=== PATIENT | male | born 1940 | race Caucasian/White ===

== ENCOUNTER 2021-03-12 04:05 | Observation (INO) | payer OTHER, SELFPAY ==
[2021-03-12] VITALS (70 sets, daily range): BP systolic 103–155; BP diastolic 61–104; PULSE 43–154; RESP 12–27; TEMP 36.2–36.5; O2SAT 96–100; BMI 26.2
--- NOTE | 2021-03-12 | ECHO_ITS ---
Patient Info Name: Tristen Aggarwal Age: 80 years : 1940 Gender: Male Ht: 72 in Wt: 203 lbs BSA: 2.18 m2 HR: 46 bpm BP: 111 / 66 mmHg Heart Rhythm: Sinus Rhythm Technical Quality: Good Exam Date: 03/12/2021 11:45 AM Exam Location: [facility] Patient Status: Inpatient Admit Date: 03/12/2021 Staff Ordering Physician: Aldo Hazel MD Lift Builder Whole: Shiela Baker RDCS Attending Provider: Cassy Miller MD Exam Type: CA echo doppler color flow Study Info Indications I48.1 - Persistent atrial fibrillation Complete two-dimensional, color flow and Doppler transthoracic echocardiogram is performed. Summary 1. Complete two-dimensional, color flow and Doppler transthoracic echocardiogram is performed. 2. Normal left and right ventricular size and systolic function. 3. Mildly sclerotic aortic valve with no significant valve dysfunction. 4. Normal sinus rhythm(study ordered because of atrial fibrillation). Left Ventricle Left ventricular chamber dimension is normal. Left ventricular systolic function is normal, estimated at 60-65%. The left ventricular diastolic function is normal. Right Ventricle Right ventricular chamber dimension is normal. Left Atria Left atrial chamber dimension is normal. Right Atria Right atrial chamber dimension is normal. Aortic Valve The aortic valve is trileaflet. There is mild aortic valve sclerosis. Pulmonic Valve The pulmonic valve is not well visualized. Mitral Valve The mitral valve has normal leaflets. Tricuspid Valve The tricuspid valve leaflets are normal. Pericardium/Pleural The pericardium appears normal. Aorta The aortic root size at the sinus of Valsalva is normal. Left Ventricular Outflow Tract Name Value Normal LVOT 2D LVOT Diameter 2.1 cm LVOT Doppler LVOT Peak Gradient 6 mmHg LVOT Mean Gradient 3 mmHg LVOT VTI 27 cm LVOT VTI/AV VTI Ratio 0.8 LVOT Stroke Volume 94 ml LVOT CO 18.1 l/min LVOT CI 8.3 l/min/m2 Pulmonic Valve Name Value Normal PV Doppler PV Peak Gradient 2 mmHg Mitral Valve Name Value Normal MV Doppler MV Decel [place] 209 cm/s2 MV PHT 69 ms MV Area (PHT) 3.2 cm2 4.0-5.0 MV Diastolic Function MV E Peak Ve
--- NOTE | ~2021-03-12 | US_ITS ---
EXAMINATION: US venous doppler [facility] DATE: 03/12/2021 18:15 INDICATION: Tachycardia and syncope TECHNIQUE: Wagoner scale images without and with compression and Doppler images of the bilateral lower e xtremity veins were obtained. COMPARISON: None FINDINGS: The right common femoral vein, profunda femoral vein, femoral vein, popliteal vein, peroneal trunk, p osterior tibial veins, and greater saphenous vein are patent. The left common femoral vein, profunda femoral vein, femoral vein, popliteal vein, peroneal trunk, po sterior tibial veins, and greater saphenous vein are patent. IMPRESSION: 1. Patent bilateral lower extremity veins. No evidence of deep venous thrombosis. Reviewed, dictated and finalized at location F. ING ROOM SUPERVISOR IMPRESSION: 1. Patent bilateral lower extremity veins. No evidence of deep venous thrombosi s.
--- NOTE | ~2021-03-12 | XR_ITS ---
EXAMINATION: XR chest 1V portable DATE: 03/12/2021 04:43 INDICATION: Tachycardia and syncopal episode after standing up. TECHNIQUE: frontal view of the chest was obtained. COMPARISON: CT abdomen and pelvis dated FINDINGS: Chronic mild elevation of the left hemidiaphragm. Mild bibasilar atelectasis. A few scattered small c alcified nodules consistent with old granulomatous disease. No pleural effusion or pneumothorax. The cardiomediastinal silhouette is normal. IMPRESSION: 1. Mild bibasilar atelectasis with chronic mild elevation of the left hemidiaphragm. Reviewed, dictated and finalized at location A. NTIST ENGINEER IMPRESSION: 1. Mild bibasilar atelectasis with chronic mild elevation of the left hemidiaph ragm.
--- NOTE | ~2021-03-12 | CT_ITS ---
EXAMINATION: CT brain wo con DATE: 03/12/2021 04:46 INDICATION: Syncope. TECHNIQUE: Computed tomography (CT) of the head was performed without intravenous contrast. The mA wa s adjusted according to patient size. Iterative reconstruction technique was employed. The dose-lengt h product was 681.00 mGy-cm. COMPARISON: Brain MRI 03/20/2011 FINDINGS: There are scattered areas of low attenuation in the cerebral white matter, which is within normal limits for the patient's age. There is no intracranial hemorrhage, acute infarction, or abnorm al intracranial mass lesion. The ventricles are normal in size. There is mucosal thickening in the pa ranasal sinuses. There are likely changes of ocular lens replacement surgeries. The mastoid air cells are normal. IMPRESSION: 1. Normal aging brain. Reviewed, dictated and finalized at location B. THERMAL CUTTER IMPRESSION: 1. Normal aging brain.
--- NOTE | 2021-03-12 04:24 | ECG_ITS ---
Measurements Intervals [place] Rate: 105 P: MD: 0 QRS: -18 QRSD: 104 T: 53 QT: 323 QTc: 428 Interpretive Statements ATRIAL FIBRILLATION WITH RAPID VENTRICULAR RESPONSE BASELINE ARTIFACT- II, III, AVR, AVF, V3-V6 ABNORMAL ECG Electronically Signed On 03-12-2021 6:36:38 MORNING SHOW PRODUCER by Poli Huggins D.O.
--- NOTE | 2021-03-12 04:31 | PC.NURSE ---
Patient taken to radiology via stretcher.
[2021-03-12] MEDS: SODIUM CHLORIDE 0.9% IV 500 ML 999 ML IV CONT (04:53)
[2021-03-12] MEDS: TETANUS,DIPHTHERIA,AC PERTUSSIS ADULT (0.5 ML) BOOSTRIX IM (04:54)
[2021-03-12 05:04] LABS: Basophils Absolute Auto 0.1 K/mm3 (0.0-0.1); Basophils Percent Auto 0.7 % (0.2-1.2); Eosinophils Absolute Auto 0.3 K/mm3 (0-0.3); Eosinophils Percent Auto 3.7 % (0-4.4); Hematocrit 44.5 % (42.0-52.0); Hemoglobin 14.7 g/dL (14.0-18.0); Immature Granulocyte Absolute 0.03 K/mm3 (0.00-0.031); Immature Granulocyte Percent A 0.4 % (0-0.5); Lymphocytes Absolute Auto 1.44 K/mm3 (0.9-3.2); Lymphocytes Percent Auto 20.5 % (18.3-44.2); Mean Corpuscular Hemoglobin 32.6 pg (26-34); Mean Corpuscular Volume 98.7 fl (80-100); Mean Platelet Volume 10.5 fl (7.4-10.4); Monocytes Absolute Auto 0.6 K/mm3 (0.1-0.6); Monocytes Percent Auto 8.5 % (2.6-8.5); Neutrophils Absolute Auto 4.7 K/mm3 (1.3-6.7); Neutrophils Percent Auto 66.2 % (45.5-73.1); Platelet Count Result 175 k/mm3 (150-375); Red Blood Count 4.51 M/mm3 (4.6-6.20); Red Cell Distribution Width 12.6 % (11.5-14.5)
--- NOTE | 2021-03-12 05:16 | ED.GENADULT ---
HPI - General Adult General Chief complaint: Syncope Stated complaint: fall, head injury Time Seen by Provider: 03/12/21 04:19 History of Present Illness HPI narrative: Patient is an 80-year-old gentleman who presents the emergency department with chief complaint of head injury. Patient states he got up and noticed his heart was beating fast he if he may have passed out but is not quite sure. Patient states that he struck his head reports that he is unsure of his last tetanus status. The patient reports was a small laceration on his forehead. Family reports that he is had some episodes of tachycardia before in the past and is to see cardiology but is currently not officially diagnosed with atrial fibrillation and has not had issues with rapid ventricular response before in the past. Related Data Home Medications Medication Instructions Recorded Confirmed clotrimazole-betamethasone 1 1 applic TOPICAL BID 05/27/19 12/29/19 %-0.05 % topical cream ergocalciferol (vitamin D2) 1,250 50,000 unit PO WEEKLY 05/27/19 12/29/19 mcg (50,000 unit) capsule esomeprazole magnesium 40 mg 40 mg PO DAILY 05/27/19 12/29/19 capsule,delayed release finasteride 5 mg tablet 5 mg PO DAILY 05/27/19 12/29/19 memantine 10 mg tablet 10 mg PO BID 05/27/19 12/29/19 oxybutynin chloride 5 mg tablet 5 mg PO BID 05/27/19 12/29/19 rivastigmine 4.6 mg TRANSDERM DAILY 05/27/19 12/29/19 simvastatin 20 mg tablet 10 mg PO .COMPLEX tablet 05/27/19 12/29/19 terazosin 5 mg capsule 5 mg PO .everyday at bedtime cap 05/27/19 12/29/19 cetirizine mg 03/12/21 lisinopril 03/12/21 Allergies Allergy/AdvReac Type Severity Reaction Status Date / Time aspirin Allergy Unknown Unknown Verified 03/12/21 04:25 Review of Systems Review of Systems: A 10 system review of systems was completed on the patient and is negative except for what is stated in the HPI. Nursing and ancillary documentation was reviewed. [facility] Past Medical History Medical History Branch retinal vein occlusion of left eye Elevated prostate specific antigen less than 10 ng/ml Routine eye exam Social History Social History Second hand tobacco smoke exposure: No Alcohol intake: current Exam Narrative: GENERAL: Well-appearing, well-nourished, and in no acute distress. HEAD: Normocephalic, 2 cm stellate laceration of the left eyebrow. EYES: PERRLA and EOMI. ENT: Nares clear, no rhinorrhea or epistaxis. Mucous membranes moist. NECK: Supple. CHEST: Clear to auscultation. No respiratory distress. HEART: Regular rate and rhythm. No murmur heard. Normal peripheral pulses. ABDOMEN: Soft, nontender, nondistended, normal active bowel sounds. EXTREMITIES: Normal range of motion. No edema. SKIN: Warm, dry, no rash. NEURO: No focal deficits. Alert and oriented x3. PSYCH: Normal mood and affect. Course Course Emergency Course: EKG is atrial fibrillation with a rate of [address] elevation or ST depression Chest x-ray shows no evidence of focal infiltrate Vital Signs Vital signs: Vital Signs Temperature 36.2 C L 03/12/21 04:19 Pulse Rate 95 03/12/21 04:19 Respiratory Rate 20 03/12/21 04:19 Blood Pressure 145/87 H 03/12/21 04:19 Pulse Oximetry 99 03/12/21 04:19 Temperature 36.2 C L 03/12/21 04:19 Pulse Rate 107 H 03/12/21 05:31 Respiratory Rate 14 03/12/21 05:31 Blood Pressure 134/96 H 03/12/21 05:31 Pulse Oximetry 99 03/12/21 05:31 Procedures Laceration Laceration 1: Date: 03/12/21 Time: 06:14 Site: face Side (If applicable): left Size (cm): 2.5 Description: stellate Depth: simple, single layer Local Anesthetic: lidocaine 1% Amount of anesthesia used (mL): 3 Pre-repair: wound explored and irrigated ====== Skin Level ====== Skin layer closed with: prol
[2021-03-12 05:18] LABS: Alanine Aminotransferase 30 U/L (4-50); Albumin Level 4.6 g/dL (3.5-5.1); Alkaline Phosphatase 72 U/L (38-126); Anion Gap 10 mmol/L (8-16); Aspartate Amino Transferase 46 U/L (17-59); Bilirubin,Total 0.4 mg/dL (0.2-1.3); Blood Urea Nitrogen 27 mg/dL (9-20); Calcium 9.3 mg/dL (8.4-10.2); Carbon Dioxide 28 mmol/L (22-30); Chloride 102 mmol/L (98-107); Estimated Glomerular Filt Rate > 60; Glucose 121 mg/dL (65-110); Potassium 3.7 mmol/L (3.4-5.0); Sodium 140 mmol/L (137-145)
[2021-03-12 05:49] LABS: Add Urine Microscopic? NO; Appearance Urine Clear (Clear); Bilirubin Urine Negative (Negative); Blood Urine Negative (Negative); Color Urine Yellow (Yellow); Glucose Urine UA Negative (Negative); Ketones Urine Negative (Negative); Leukocyte Esterase Ur Negative LEU/UL (Negative); Mucus Urine Rare /lpf; Nitrate Urine Negative (Negative); Protein Urine Negative (Negative); RBC Urine 0-2 /hpf (0-2); Specific Grav Ur 1.012 (1.001-1.035); Squamous Epithelial Cell Urine Rare /hpf (Few); Urobilinogen Urine Negative mg/dL (<2.0); WBC Urine 0-3 /hpf
[2021-03-12] MEDS: dilTIAZem HCl INJ 25 MG/5 ML VIAL 20 MG IV PUSH (06:37)
[2021-03-12] MEDS: dilTIAZem 100 MG/100 ML 100 MG/100 ML BAG IV CONT (06:37)
--- NOTE | 2021-03-12 08:32 | PM.IMHP ---
H&P: HPI History of Present Illness Date/Time: PATIENT HAS BEEN ADMITTED UNDER OBSERVATION STATUS 03/12/21 08:32 Chief Complaint: Syncope with fall Narrative: 80yo male with HTN, BPH and dementia brought in by private car after a syncopal episode and fall. Patient got up from bed and walked to the bathroom crossing tender hours of admission. He denies any tunnel visiion, lightheadedness or chest pain. He believes that he finished voiding when he felt his heart race and then 'blacked out' for a few seconds but long enough to cause a left forehead laceration. He was aware immediately and was able to use the call button. He does not fall much at all. He denies hx of CAD, [place] but does have a hx of 'heart racing' in the past and was given 'a small pill'. Complete ROS was negative. Specifically, he denies fever, chills, cough, shortness of breath, odynophagia, dysphagia, anosmia, dysgeusia, dysuria, hematuria, melena, hematochezia, nausea, vomiting, diarrhea or abdominal pain. No history of bleeding ulcers. He has had his COVID vaccine and booster. She also had his flu vaccine. Patient is alert and oriented x4 but some details are sketchy. Patient presented emergency room for evaluation. In the emergency room, patient was hemodynamically stable. His heart rate was elevated up to 154. EKG showed atrial fibrillation which is a new diagnosis for this patient. CT of the brain showed no acute findings. Chest x-ray mild bibasilar atelectasis with chronic elevation left hemidiaphragm. His lab work was unrevealing. His left forehead laceration was sutured. He was given diltiazem IV and started on diltiazem drip. Heart rate his become better controlled. He was given diptheria/tetanus/pertussis vaccine in the ED. He was admitted for further care. Review of Systems Review of Systems: All systems reviewed & are unremarkable except as noted in HPI and below PMFSH Past Medical History Medical History BPH (benign prostatic hyperplasia) Branch retinal vein occlusion of left eye Dementia Elevated prostate specific antigen less than 10 ng/ml Essential hypertension, benign Mixed hyperlipidemia Surgical History Surgical History Hx of cataract extraction Family History Family History Sibling Tachyarrhythmia Social History Social History Social History: Lives with his at [facility]. He is Full Code. No tobacco use. Drinks 3oz of wine per night. No drug use. He nominates his son to be the individual who would make decisions for him if he is unable. Smoking status: Never smoker Second hand tobacco smoke exposure: No Alcohol intake: current Drinks per week: 7 Substance use: never Spiritual care concerns: No Meds Home Medications and Allergies Home Medications Medication Instructions Recorded Confirmed Type finasteride 5 mg tablet 5 mg PO DAILY 05/27/19 03/12/21 History rivastigmine 4.6 mg TRANSDERM DAILY 05/27/19 03/12/21 History simvastatin 20 mg tablet 10 mg PO .COMPLEX tablet 05/27/19 03/12/21 History terazosin 5 mg capsule 5 mg PO .everyday at bedtime cap 05/27/19 03/12/21 History cetirizine 10 mg PO PRN PRN 03/12/21 03/12/21 History cholecalciferol (vitamin D3) 50 mcg PO DAILY 03/12/21 03/12/21 History memantine 28 mg PO DAILY 03/12/21 03/12/21 History apixaban [Eliquis] 5 mg PO Q12HR #60 tablet 03/13/21 Rx metoprolol tartrate 12.5 mg PO Q12HR #30 tablet 03/13/21 Rx Allergies Allergy/AdvReac Type Severity Reaction Status Date / Time aspirin Allergy Unknown Swelling Verified 03/12/21 12:29 Vital Signs Vital Signs - 24 hr 03/12/21 04:19 03/12/21 04:30 03/12/21 04:31 Temperature 97.2 F L Pulse Rate 95 117 H 113 H Respiratory Rate 20 20 16 Blood Pressure 145/87 H 132/81 Pulse Oximetry 99
[2021-03-12] MEDS: METOPROLOL TARTRATE 25 MG TABLET PO ×2 (09:50→20:39)
--- NOTE | 2021-03-12 10:15 | ECG_ITS ---
Measurements Intervals [place] Rate: 63 P: 67 DE: 171 QRS: -7 QRSD: 97 T: 32 QT: 382 QTc: 391 Interpretive Statements SINUS RHYTHM WITH SINUS ARRHYTHMIA DELAYED PRECORDIAL R/S TRANSITION BASELINE ARTIFACT- I, II, III, AVL, AVF, V5-V6 BORDERLINE ECG Electronically Signed On 03-12-2021 11:42:31 PASTE MIXING SUPERVISOR by Poli Huggins D.O.
--- NOTE | 2021-03-12 10:16 | PC.NURSE ---
Dr. Hazel notified of patient's heart rate and rhythm. Cardizem drip stopped and repeat EKG to be completed.
--- NOTE | 2021-03-12 10:17 | PC.NURSE ---
Marlonzem drip stopped per verbal order via Dr. Hazel.
[2021-03-12] MEDS: APIXABAN 5 MG TABLET PO ×2 (10:36→20:39)
[2021-03-12 10:56] LABS: D Dimer 1.63 ug/mL (<0.48)
--- NOTE | 2021-03-12 11:16 | PC.NURSE ---
Dr. Hazel notified about HR at 50, Dr. Hazel stated if he is not symptomatic just watch him.
[2021-03-12 11:48] LABS: Thyroid Stimulating Hormone Reflex 0.618 uIU/mL (0.465-4.68)
[2021-03-12 12:05] LABS: Folic Acid 16.8 ng/mL (2.76->20)
[2021-03-12 15:16] LABS: SARS-CoV-2 RNA PCR Negative
--- NOTE | 2021-03-12 20:07 | ADMGEN ---
This patient, Tristen Aggarwal, was admitted to IMU Room 206-01. Patient/family oriented to hospital policies and general routines including ID bracelet, bed and alarms, visiting hours, pain management, procedures, bathroom and other care routines, personal items, smoking policy, room service/diet, and visiting hours. Information on how to activate the Rapid Response Team has been discussed. Patient/Family are encouraged to report perceived risks to care and to ask questions if they do not understand what they are told or what they should do.
[2021-03-13] VITALS (13 sets, daily range): BP systolic 131–160; BP diastolic 62–85; PULSE 44–74; RESP 16–22; TEMP 36.1–36.6; O2SAT 98–100
[2021-03-13] MEDS: METOPROLOL TARTRATE 25 MG TABLET PO (10:04)
[2021-03-13] MEDS: APIXABAN 5 MG TABLET PO (10:04)
--- NOTE | 2021-03-13 10:25 | PM.CNCAR ---
Assessment and Plan Assessment and plan (1) Atrial fibrillation with rapid ventricular response: Code(s): I48.91 - Unspecified atrial fibrillation Status: Acute Assessment and Plan: 80-year-old male with history of hypertension, dyslipidemia, cognitive impairment/dementia, BPH. Patient admitted to the hospital with an episode of syncope with subsequent fall and laceration in the left eyebrow. CT scan negative for any acute intracranial process. Patient was found to be in atrial fibrillation with RVR, initiated on IV diltiazem with subsequent scientologist of sinus rhythm. Currently in sinus rhythm. Patient gives history of occasional dizziness without syncope. He apparently had ambulatory compliance monitor, results are not available. TSH normal. -patient has been initiated on anticoagulation with apixaban. Continue low-dose beta-carrie. -echocardiogram with Doppler to rule out any major structural heart disease. -PT OT evaluation for gait stability has been performed. Patient's candidacy for chronic anticoagulation will need to be readdressed if he has recurrent syncope. Further cardiac testing can be performed as an outpatient. (2) Syncope: Qualifiers: Syncope type: unspecified Qualified Code(s): R55 - Syncope and collapse Code(s): R55 - Syncope and collapse Status: Acute Assessment and Plan: Check orthostatic vitals. Echocardiogram with Doppler to rule out structural heart disease. History of Present Illness History of Present Illness Consult date/time: 03/13/21 10:25 DATE OF CONSULT: 03/13/2021 REASON FOR CONSULT: AFib, syncope REQUESTING PHYSICIAN:Aldo Hazel MD CHIEF COMPLAINT: Loss of consciousness HPI: 80-year-old male with history of hypertension, dyslipidemia, cognitive impairment/dementia, BPH. Patient presented to [facility] Emergency Room on 03/12/2021 after he had a brief loss of consciousness and fall. Patient stated that he felt racing of heart, followed by syncope and fall. He had trauma to his left forehead with laceration in the left eye brow. Patient gives history of occasional dizziness but without loss of consciousness. He states that he had one-month ambulatory compliance monitor placed but he does not know the results of the test. He denies angina or shortness of breath for his level of activity. Denies any known prior cardiac history. Heart rate at presentation was elevated in 110s. EKG on presentation which I personally evaluated showed atrial fibrillation with RVR, ventricular rate 105 beats per minute. Patient was initiated on IV diltiazem which has been discontinued now. Subsequent EKG showed sinus rhythm. TSH is normal. Troponins are pending. Chest x-ray showed mild bibasilar atelectasis with chronic mild elevation of the left hemidiaphragm. CT head did not show any acute intracranial process. Venous duplex negative for DVT. Patient has been initiated on anticoagulation with apixaban. COVID-19 PCR negative. Reason For Visit: Syncope,Atrial Fibrillation, Head Injury Review of Systems Review of Systems: General: Positive for fatigue Psychological: Negative for anxiety, depression Ophthalmic: negative for loss of vision ENT: Negative for epistaxis, headaches Allergy and immunology: Negative for hives, nasal congestion Hematologic and lymphatic: Negative for overt bleeding problems Endocrine: Negative for hot flashes, palpitations Respiratory: Negative for cough, hemoptysis Cardiovascular: Negative for chest pain, positive for palpitations Gastrointestinal: Negative for abdominal pain, nausea, vomiting, hematochezia Musculoskeletal: Laceration left eyebrow area Neurological: Post for generalized weakness Dermatological: Negative for rash, skin discoloration PMF Past Medical History Medical History BPH (benign prostatic hyperplasia) Branch retinal vein occlusion of le
[2021-03-13 13:18] LABS: Troponin I < 0.012 ng/mL (0.000-0.034)
--- NOTE | 2021-03-13 14:59 | PM.DS ---
DS: Admitting Diagnosis Discharge Date 03/13/21 Admitting Diagnosis Syncope DS: Discharge Diagnosis Discharge Diagnosis (1) Syncope: Qualifiers: Syncope type: unspecified Qualified Code(s): R55 - Syncope and collapse Code(s): R55 - Syncope and collapse Status: Acute Assessment and Plan: Unclear if patient had complete loss of consciousness or just felt weak, stumbling a bit and striking his head. CT of the brain showing no acute findings. Lab work was unrevealing. He does have newly discovered atrial fibrillation but unclear duration. Consider the possibly of a malignant arrhythmia causing his syncope but normal Echo makes this unlikely. Seizure seems less likely. COVID PCR was negative. Echo showing EF 60-65% and normal diastolic function. Orthostatic vital signs normal. He worked with PT and OT and did well with walking in the halls. Syncope could be related to his home medications. (2) Facial laceration: Qualifiers: Encounter type: initial encounter Qualified Code(s): S01.81XA - Laceration without foreign body of other part of head, initial encounter Code(s): S01.81XA - Laceration without foreign body of other part of head, initial encounter Status: Acute Assessment and Plan: Laceration related to above. This was sutured. Patient will need to follow-up with his doctor in 7-10 days to have these removed. (3) Atrial fibrillation with rapid ventricular response: Code(s): I48.91 - Unspecified atrial fibrillation Status: Acute Assessment and Plan: Heart rate elevated to 154 requiring diltiazem bolus and drip. Heart rate became better controlled. He was started on metoprolol and Diltiazem stopped. he converted to NSR verified by EKG. Cardiology was consulted. TSH normal. Trop was negaitve. D-dimer positive but LE doppler negative and no symptoms of PE. CXR showing mild bibasilar atelectasis with chronic mild elevation of the left hemidiaphragm. Discussed with Cardiology. Patient was started on Eliquis. Lisinopril and Hytrin were held. (4) Essential hypertension, benign: Code(s): I10 - Essential (primary) hypertension Status: Acute Assessment and Plan: Patient on lisinopril 10 mg on his home medication list. Blood pressure elevated times with this could be related to the time he was sutured or from pain. Unclear how well controlled his blood pressure is. Not orthostatic. BP stable with the metoprolol. (5) Dementia: Code(s): F03.90 - Unspecified dementia without behavioral disturbance Status: Acute Assessment and Plan: Stable. Confusion appears to be mild. Continue his Namenda and rivastigmine. (6) BPH (benign prostatic hyperplasia): Code(s): N40.0 - Benign prostatic hyperplasia without lower urinary tract symptoms Status: Acute Assessment and Plan: He has listed in the H that he has elevated PSA but last PSA was 3.5 in 2017. He is on terazosin and finasteride at home (Not on oxybutynin as initially listed on home med list). Finasteride was resumed. DS: Summary Hospital Course Reason for hospitalization: 80yo male with HTN, BPH and dementia brought in by private car after a syncopal episode and fall. Patient got up from bed and walked to the bathroom language teacher hours of admission. Please see H&P for details Hospital Course: Please see above for details of his hospital course Status at Discharge Cognitive/behavioral status at discharge: Stable Time Spent with Patient Time attestation: Total time spent providing and/or coordinating discharge services: 32 minutes Time spent: Greater than 30 minutes Specific discharge activities: Discussed with his . All questions answered. Exam Narrative: AF 96.9 149/79 48 20 100% ra Gen - NARD HEENT - sutured laceration to the left eyebrow with left periorbital ecchymosis but no siginficnat edema Chest -
[2021-03-13] MEDS: RIVASTIGMINE TARTRATE 4.6 MG PATCH 1 PATCH TRANSDERM (16:28)
[2021-03-13] MEDS: MEMANTINE HCL XR 28 MG CAP PO (16:28)
[2021-03-13 16:36] LABS: EDCOVIDSCREEN Negative (Negative)
== END 2021-03-13 16:45 ==
LOC: ANHED 06:28 → ANHIMU 03-13 08:02 → ANH3MEDSUR 03-14 13:23 → ANHIMU 03-14 13:23
PROVIDERS: Admitting Provider Internal Medicine; Emergency Provider Emergency Medicine; Visit Provider Internal Medicine
DX: I48.91 Unspecified atrial fibrillation (principal); R55 Syncope and collapse; S01.81XA Laceration without foreign body of other part of head, initial encounter; W18.39XA Other fall on same level, initial encounter; R79.1 Abnormal coagulation profile; I10 Essential (primary) hypertension; N40.0 Benign prostatic hyperplasia without lower urinary tract symptoms; F03.90 Unspecified dementia, unspecified severity, without behavioral disturbance, psychotic disturbance, mood disturbance, and anxiety; E78.2 Mixed hyperlipidemia; Z23 Encounter for immunization; Z20.822 Contact with and (suspected) exposure to COVID-19
CPT/HCPCS: 12011; 36415; 70450; 71045; 80053; 81003; 82607; 82746; 84443; 84484; 85025; 85380; 87426; 90715; 93005; 93306; 93970; 96365; 96366; 97161; 97165; 99285; A9270; C9803; G0378; J7040; U0003; U0005

== ENCOUNTER 2022-06-16 15:36 | Emergency (ER) | payer OTHER, SELFPAY ==
[2022-06-16] VITALS (24 sets, daily range): BP systolic 150–219; BP diastolic 73–108; PULSE 64–93; RESP 16–24; TEMP 36.2; O2SAT 95–100
--- NOTE | ~2022-06-16 | CT_ITS ---
EXAMINATION: CT thoracic spine wo con DATE: 06/16/2022 18:47 INDICATION: Fall with back pain TECHNIQUE: Computed tomography (CT) of the thoracic spine was performed without intravenous contrast. Automated exposure control and iterative reconstruction technique were employed. The dose-length pro duct was 1391.23 mGy-cm. COMPARISON: None FINDINGS: Mild thoracic dextrocurvature. Sagittal alignment is normal. There is sharply angulated cortex suspic ious for additional recent fracture at the posterior right seventh rib near its articulation with the vertebral body and There is a relatively recent-appearing, potentially acute T3 burst fracture with thin linear sclerosis extending across the entire vertebral body with approximately one third anterio r to central vertebral body height loss and without retropulsion. Chronic appearing mild anterior wed ging with 20% or less anterior vertebral body height loss at T1, T2, T4, T6 and T7 with no evident li near lucency or sclerosis or sharply angulated cortices. There are additional likely acute nondisplac ed fractures with sharp angulation of the inner cortices of the medial most aspect of the posterior r ight fifth-10th ribs near their articulations with the vertebral bodies. Moderate disc height loss at T6-T7 through T8-T9 with mild disc height loss at the majority the remaining thoracic levels. No sia tral canal stenosis. Small right pleural effusion. No evident pneumothorax. Mild dependent atelectasi s at the bilateral lung bases. There are few scattered bilateral small calcified pulmonary nodules al maximino with calcified right hilar and mediastinal lymph nodes consistent with old granulomatous disease. Cardiomegaly with atherosclerotic coronary artery calcifications. Aortic valve calcifications. No pe ricardial effusion. No pathologically enlarged thoracic lymphadenopathy. IMPRESSION: 1. Likely acute T3 burst fracture with one third anterior to central vertebral body height loss and n o significant retropulsion. 2. Additional likely acute fractures of the right posterior 3rd and 5th-10th ribs. 3. Small right pleural effusion. No pneumothorax. Reviewed, dictated and finalized at location A. IMPRESSION: 1. Likely acute T3 burst fracture with one third anterior to central vertebral body height loss and no significant retropulsion. 2. Additional likely acute fractures of the right posterior 3rd and 5th-10th ri bs. 3. Small right pleural effusion. No pneumothorax.
--- NOTE | ~2022-06-16 | CT_ITS ---
EXAMINATION: CT brain wo con DATE: 06/16/2022 18:38 INDICATION: Fall in a patient with dementia and anticoagulation. TECHNIQUE: Computed tomography (CT) of the head was performed without intravenous contrast. Sagittal and coronal reconstructions were performed. The mA was adjusted according to patient size. Iterative reconstruction technique was employed. The dose-length product was 605.33 mGy-cm. COMPARISON: head CT dated 03/12/2021 FINDINGS: No fracture. No acute intracranial hemorrhage, acute infarction or abnormal extra axial fluid collect ion. There is mild scattered white matter hypoattenuation consistent with chronic small vessel ischem ic disease. Symmetric prominence of the sulci and ventricles consistent with moderate age-appropriate diffuse cerebral volume loss. No mass/mass effect. Chronic pleural calcification along the falx and tentorium.. Changes of bilateral intraocular lens replacement. The callosal thickening the paranasal sinuses. Mastoid air cells and middle ear cavities are clear. IMPRESSION: 1. No fracture or acute intracranial process. 2. Stable appearance of age-related changes including moderate diffuse volume loss and mild scattered white matter hypoattenuation consistent with chronic small vessel ischemic disease. Reviewed, dictated and finalized at location A. IMPRESSION: 1. No fracture or acute intracranial process. 2. Stable appearance of age-related changes including moderate diffuse volume l oss and mild scattered white matter hypoattenuation consistent with chronic sma ll vessel ischemic disease.
--- NOTE | ~2022-06-16 | XR_ITS ---
EXAMINATION: XR hand RT min 3V, XR forearm RT 2V DATE: 06/16/2022 18:55 INDICATION: Right lower arm pain and bruising at the ulnar side of the right hand post fall TECHNIQUE: 1. Posteroanterior, oblique and lateral views of the right hand were obtained. 2. Anteroposterior and lateral views of the right forearm were obtained. COMPARISON: None. FINDINGS: Bone alignment is normal. Corticated ossicle along the distal ulna most likely a chronic nonunited ul anish styloid avulsion fracture. No acute fracture. Polyarticular osteoarthritis, severe at the first c arpometacarpal joint and mild at the elbow, triscaphe and multiple metacarpophalangeal and interphala ngeal joints. Peripheral IV at the antecubital fossa. Soft tissues are unremarkable. IMPRESSION: 1. 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 No acute osseous abnormali ty. Reviewed, dictated and finalized at location A. IMPRESSION: 1. 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 No a cute osseous abnormality.
--- NOTE | ~2022-06-16 | CT_ITS ---
EXAMINATION: CT abdomen pelvis w con DATE: 06/16/2022 18:38 INDICATION: Right-sided abdominal tenderness post fall TECHNIQUE: Computed tomography (CT) of the abdomen and pelvis was performed with 100 mL Omnipaque-350 intravenous contrast. Automated exposure control and iterative reconstruction technique were employe d. The dose-length product was 1273.12 mGy-cm. COMPARISON: 08/11/2014 FINDINGS: Small posterior layering right pleural effusion. Mild atelectasis at the bilateral dependent lung bas es. Cardiomegaly. Atherosclerotic coronary artery calcifications. Aortic valve calcific lesion. No pe ricardial effusion. Mild pectus excavatum. Couple small hepatic cysts the largest measuring 1.6 cm at the caudate lobe. Gallbladder, pancreas and bilateral adrenal glands are normal. Multiple splenic ca lcifications consistent with old granulomatous disease. Bilateral renal cysts the largest on the righ t measuring 5 cm. Bladder is normal. Marked prostatomegaly measuring 6.7 x 5.5 cm. Moderate to large amount stool scattered throughout the colon which could be seen with constipation. Moderate diverticu losis with sigmoid colon predominance but without associated inflammatory stranding to suggest divert iculitis. No dilated bowel to suggest obstruction. Normal appendix. No free intraperitoneal gas or fl uid. No pathologically enlarged abdominal or pelvic lymphadenopathy. There is calcified atheroscleros is of the aorta and many of the other arteries. Mild to moderate bilateral hip osteoarthritis. Mild l umbar and mild to moderate lower thoracic spondylosis. IMPRESSION: 1. Moderate to large amount colonic stool which could be seen with aspiration. No bowel obstruction o r other acute intra-abdominal/pelvic process. 2. Small right pleural effusion and mild bibasilar atelectasis. 3. Cardiomegaly. 4. Prominent prostatomegaly. 5. Moderate sigmoid diverticulosis. Reviewed, dictated and finalized at location A. IMPRESSION: 1. Moderate to large amount colonic stool which could be seen with aspiration. No bowel obstruction or other acute intra-abdominal/pelvic process. 2. Small right pleural effusion and mild bibasilar atelectasis. 3. Cardiomegaly. 4. Prominent prostatomegaly. 5. Moderate sigmoid diverticulosis.
--- NOTE | ~2022-06-16 | XR_ITS ---
EXAMINATION: XR shoulder LT min 2V DATE: 06/16/2022 18:56 INDICATION: Left anterior shoulder pain post fall TECHNIQUE: AP internally and externally rotated, AP oblique externally rotated and transscapular Y vi ews of the left shoulder were obtained. COMPARISON: None FINDINGS: Mildly displaced fracture of the mid to inferior left scapular body. No evident involvement of the gl enoid. Normal alignment and mild osteoarthritis at the left humeral and acromioclavicular joints. Vis ualized portion of the left lung are clear. Soft tissue swelling posterior to the scapula. IMPRESSION: Mildly displaced fracture of the mid to inferior left scapular body. Reviewed, dictated and finalized at location A.
--- NOTE | ~2022-06-16 | XR_ITS ---
EXAMINATION: XR chest 1V DATE: 06/16/2022 18:55 INDICATION: Right lower lateral rib pain post fall TECHNIQUE: frontal view of the chest was obtained. COMPARISON: CT of the thoracic spine and of the abdomen and pelvis both dated 06/16/2022 and chest rad iograph dated 03/12/2021 FINDINGS: Mild bibasilar atelectasis. Small right pleural effusion seen on CT imaging is indiscernible on the c urrent AP projection radiograph. No pneumothorax. Cardiomegaly. Calcified right hilar and mediastinal lymph nodes consistent with old granulomatous disease. There are non to mildly displaced fractures a t the posterolateral right 3rd- 9th ribs which are new since the prior study and which appear acute o n CT imaging. IMPRESSION: 1. Acute nondisplaced mildly displaced right 3rd- 9th rib fractures. 2. Small right pleural effusion and mild bibasilar atelectasis. No pneumothorax. 3. Cardiomegaly. Reviewed, dictated and finalized at location A. IMPRESSION: 1. Acute nondisplaced mildly displaced right 3rd- 9th rib fractures. 2. Small right pleural effusion and mild bibasilar atelectasis. No pneumothorax . 3. Cardiomegaly.
--- NOTE | 2022-06-16 17:41 | ECG_ITS ---
Measurements Intervals [place] Rate: 73 P: 34 TN: 149 QRS: -15 QRSD: 94 T: 5 QT: 367 QTc: 405 Interpretive Statements SINUS RHYTHM WITH SINUS ARRHYTHMIA POSSIBLE LEFT ATRIAL ENLARGEMENT [-0.1mV P WAVE IN V1/V2] COMPARED TO ECG 03/12/2021 10:21:02 NO SIGNIFICANT CHANGES Electronically Signed On 06-16-2022 19:25:19 CDT by Irasema Baer M.D.
--- NOTE | 2022-06-16 17:59 | ED.FALL ---
HPI - Fall General Chief Complaint: Fall <Ariel Lopez PA-C - Last Filed: 06/16/22 20:21> Stated Complaint: Fall <Ariel Lopez PA-C - Last Filed: 06/16/22 20:21> Time Seen by Provider: 06/16/22 17:22 <Ariel Lopez PA-C - Last Filed: 06/16/22 20:21> Source: patient <SHANI Torres Last Filed: 06/16/22 20:21> Mode of arrival: ambulatory <SHANI Torres Last Filed: 06/16/22 20:21> Limitations: dementia <SHANI Torres Last Filed: 06/16/22 20:21> History of Present Illness HPI Narrative: This is an 81-year-old male with PMH of dementia, HLD, A-fib who presents to the ED with chief complaint of a fall that occurred 5 days ago. [place] [facility] [place] is here and helping to supplement history. Patient tells me that he did not hit his head or pass out during the fall. However he is unable to tell me any details regarding the fall. He says that he maybe got out of bed too fast and lost his balance. He complains of back pain and right flank pain and right-sided abdominal pain. He also complains of bruising to the right wrist, however states he has no pain there. He also states left shoulder pain and reduced range of motion of the shoulder. Family notes that he has swelling to the bilateral ankles that is new for him. She also reports feeling unsteady on the legs. Denies focal weakness or numbness. Denies chest pain, shortness of breath, fevers, chills, nausea, vomiting, LOC, HO. He is on Eliquis 5 mg regularly. <Ariel Lopez PA-C - Last Filed: 06/16/22 20:21> Related Data Home Medications: Home Medications Medication Instructions Recorded Confirmed finasteride 5 mg tablet 5 mg PO DAILY 05/27/19 03/12/21 rivastigmine 4.6 mg/24 hour 4.6 mg transdermal DAILY 05/27/19 03/12/21 transdermal patch simvastatin 20 mg tablet 10 mg PO .COMPLEX 05/27/19 03/12/21 terazosin 5 mg capsule 5 mg PO .everyday at bedtime 05/27/19 03/12/21 cetirizine 10 mg tablet 10 mg PO PRN PRN Allergic Symptoms 03/12/21 03/12/21 cholecalciferol (vitamin D3) 50 50 mcg PO DAILY 03/12/21 03/12/21 mcg (2,000 unit) capsule memantine 28 mg capsule 28 mg PO DAILY 03/12/21 03/12/21 sprinkle,extended release 24hr <Ariel Lopez PA-C - Last Filed: 06/16/22 20:21> Allergies/Adverse Reactions: Allergies Allergy/AdvReac Type Severity Reaction Status Date / Time aspirin Allergy Unknown Swelling Verified 06/16/22 17:37 <SHANI Torres Last Filed: 06/16/22 20:21> Review of Systems Review of Systems: CONSTITUTIONAL: Denies fever, chills, or sweats. EYES: Denies visual changes, redness, or discharge. ENT: Denies rhinorrhea, congestion, sore throat, or otalgia. CARDIOVASCULAR: Denies chest pain, palpitations, or edema. RESPIRATORY: Denies cough or dyspnea. GASTROINTESTINAL: Denies abdominal pain, nausea, vomiting, or diarrhea. GENITOURINARY: Denies dysuria or hematuria. SKIN: Denies rash or itching. MUSCULOSKELETAL: See HPI NEUROLOGIC: Denies headache, numbness, dizziness, or weakness. Denies LOC. PSYCHIATRIC: Denies anxiety or depression. <Ariel Lopez PA-C - Last Filed: 06/16/22 20:21> [facility] Past Medical History Medical History: Medical History BPH (benign prostatic hyperplasia) Branch retinal vein occlusion of left eye Dementia Elevated prostate specific antigen less than 10 ng/ml Essential hypertension, benign Mixed hyperlipidemia <Ariel Lopez PA-C - Last Filed: 06/16/22 20:21> Surgical History Surgical History: Surgical History Hx of cataract extraction <Ariel Lopez PA-C - Last Filed: 06/16/22 20:21> Family History Family History: Family History Sibling Tachyarrhythmia <Ariel Lopez PA-C - Last Filed: 06/16/22 20:21> Social History Social History
[2022-06-16 18:11] LABS: Basophils Percent Auto 0.6 % (0.2-1.2); Eosinophils Absolute Auto 0.2 K/mm3 (0-0.3); Eosinophils Percent Auto 2.3 % (0-4.4); Hematocrit 36.3 % (42.0-52.0); Hemoglobin 11.8 g/dL (14.0-18.0); Immature Granulocyte Absolute 0.05 K/mm3 (0.00-0.031); Immature Granulocyte Percent A 0.8 % (0-0.5); Lymphocytes Absolute Auto 1.35 K/mm3 (0.9-3.2); Lymphocytes Percent Auto 20.9 % (18.3-44.2); Mean Corpuscular HGB Conc 32.5 g/dl (32-36); Mean Corpuscular Hemoglobin 32.7 pg (26-34); Mean Corpuscular Volume 100.6 fl (80-100); Mean Platelet Volume 9.8 fl (7.4-10.4); Monocytes Absolute Auto 0.7 K/mm3 (0.1-0.6); Monocytes Percent Auto 10.7 % (2.6-8.5); Neutrophils Absolute Auto 4.2 K/mm3 (1.3-6.7); Neutrophils Percent Auto 64.7 % (45.5-73.1); Platelet Count Result 177 k/mm3 (150-375); Red Blood Count 3.61 M/mm3 (4.6-6.20); Red Cell Distribution Width 12.9 % (11.5-14.5); White Blood Count 6.5 K/mm3 (4.5-10.0)
[2022-06-16 18:26] LABS: Estimated CRCL calculation 58 ml/min; Estimated Glomerular Filt Rate > 60
[2022-06-16 18:40] LABS: Alanine Aminotransferase 31 U/L (6-50); Albumin Level 3.9 g/dL (3.5-5.1); Alkaline Phosphatase 46 U/L (38-126); Anion Gap 7 mmol/L (8-16); Aspartate Amino Transferase 46 U/L (17-59); Bilirubin,Total 0.7 mg/dL (0.2-1.3); Blood Urea Nitrogen 46 mg/dL (9-20); Calcium 8.5 mg/dL (8.4-10.2); Carbon Dioxide 30 mmol/L (22-30); Chloride 100 mmol/L (98-107); Estimated CRCL calculation 71 ml/min; Estimated Glomerular Filt Rate > 60; Glucose 116 mg/dL (65-110); Magnesium 2.3 mg/dL (1.6-2.3); Potassium 4.6 mmol/L (3.4-5.0); Sodium 137 mmol/L (137-145)
[2022-06-16 18:46] LABS: NT Pro B Type Natriuretic Pept 103 pg/mL (19.9-100)
[2022-06-16] MEDS: ONDANSETRON INJ 4 MG/2 ML VIAL IV PUSH (19:15)
--- NOTE | 2022-06-16 19:15 | PC.NURSE ---
Report received from CINDY Feng. Assumed care of patient at this time.
[2022-06-16] MEDS: MORPHINE SULFATE (*CRX) 4 MG/ML INJ IV PUSH (19:17)
--- NOTE | 2022-06-16 19:27 | PC.NURSE ---
Report given to Makenzie Omalley RN.
[2022-06-16 19:36] LABS: Appearance Urine Clear (Clear); Bacteria Urine None Seen /hpf; Bilirubin Urine Negative (Negative); Blood Urine Negative (Negative); Color Urine Yellow (Yellow); Glucose Urine UA Negative (Negative); Ketones Urine Negative (Negative); Leukocyte Esterase Ur Negative LEU/UL (Negative); Nitrate Urine Negative (Negative); Non Pathogenic Casts 0-2; Protein Urine Trace mg/dL (Negative); RBC Urine 0-2 /hpf (0-2); Specific Grav Ur 1.026 (1.001-1.035); Squamous Epithelial Cell Urine None seen /hpf (Few); Urobilinogen Urine 0.2 mg/dL (<2.0); WBC Urine 0-5 /hpf; pH Urine 5.5 (5.0-9.0)
[2022-06-16 19:39] LABS: Add Urine Microscopic? YES
[2022-06-16 19:49] LABS: Troponin I < 0.012 ng/mL (0.000-0.034)
== END 2022-06-16 21:36 | disposition short-term general hospital (02) ==
PROVIDERS: Emergency Provider Physician Assistant
DX: S22.41XA Multiple fractures of ribs, right side, initial encounter for closed fracture (principal); S22.031A Stable burst fracture of third thoracic vertebra, initial encounter for closed fracture; J90 Pleural effusion, not elsewhere classified; J98.11 Atelectasis; F03.90 Unspecified dementia, unspecified severity, without behavioral disturbance, psychotic disturbance, mood disturbance, and anxiety; I10 Essential (primary) hypertension; W19.XXXA Unspecified fall, initial encounter
CPT/HCPCS: 36415; 70450; 71045; 72128; 73030; 73090; 73130; 74177; 80053; 81001; 83735; 83880; 84484; 85025; 93005; 96374; 96375; 99285; J2270; J2405; L0140; Q9967

== ENCOUNTER 2023-07-23 16:41 | Emergency (ER) | payer OTHER, SELFPAY ==
--- NOTE | ~2023-07-23 | XR_ITS ---
EXAMINATION: XR shoulder LT min 2V DATE: 07/23/2023 17:20 INDICATION: Left shoulder dislocation. TECHNIQUE: 2 views of left shoulder were obtained. COMPARISON: Left shoulder radiographs 06/16/2022 FINDINGS: There is a comminuted fracture of surgical neck of proximal left humerus. The main distal f racture fragment demonstrates 12 mm anterior displacement and 25 degrees posterior angulation. Inferi or subluxation of humeral head with respect to glenoid suggests a large glenohumeral joint effusion. There is mild acromioclavicular joint osteoarthritis. IMPRESSION: 1. Comminuted two-part fracture of proximal left humerus. 2. Large left glenohumeral joint effusion. Reviewed, dictated and finalized at location A.
--- NOTE | ~2023-07-23 | CT_ITS ---
EXAMINATION: CT shoulder LT wo con DATE: 07/23/2023 18:46 INDICATION: Proximal left humeral fracture TECHNIQUE: High resolution computed tomography (CT) of the left shoulder was performed without intrav enous contrast. Additional sagittal and coronal reconstructions were performed. Automated exposure co ntrol and iterative reconstruction technique were employed. The dose-length product was 288.97 mGy-cm . COMPARISON: Left shoulder radiographs dated 07/23/2023 and 06/16/2022 FINDINGS: Old healed left scapular fracture deformity involving the body and extending to the posterior inferio r margin of the glenoid. Acute comminuted fracture at the surgical neck. There is 1.2 cm anterior dis placement and 30 degree posterior angulation consistent with a 2 part fracture. No involvement of the articular surface of the lesser greater tuberosities. The femoral head remains normally centered ove r the glenoid. There is mild widening of the glenohumeral joint space with moderate-sized dependently layering lipohemarthrosis. There is prominent soft tissue swelling about the fracture most prominent at the posterior deltoid muscle. Visualized portion of the left lung is clear. IMPRESSION: 1. Comminuted two-part fracture at the surgical neck of the proximal left humerus with moderate-sized left glenohumeral lipohemarthrosis. 2. Old healed scapular fracture deformity. Reviewed, dictated and finalized at location A. IMPRESSION: 1. Comminuted two-part fracture at the surgical neck of the proximal left humer us with moderate-sized left glenohumeral lipohemarthrosis. 2. Old healed scapular fracture deformity.
[2023-07-23 16:44] VITALS: BP 200/86; PULSE 60; RESP 20; TEMP 36.3; O2SAT 95
[2023-07-23 17:58] VITALS: BP 132/92; PULSE 58; RESP 27; O2SAT 96
--- NOTE | 2023-07-23 18:06 | ED.FALL ---
HPI - Fall General Chief Complaint: Fall Stated Complaint: fall, shoulder pain left Time Seen by Provider: 07/23/23 17:12 Source: patient Mode of arrival: ambulatory Limitations: no limitations History of Present Illness HPI Narrative: This is an 83-year-old male who presents to the ED via EMS [facility] with chief complaint of left shoulder injury that occurred just prior to arrival. Patient reports that he was outside walking when he went up an embankment. Reports that he tried to grab a tree branch while on the embankment but could not pull himself up. He reports this caused him to fall backwards onto his left shoulder. Denies any further sites of pain or injury. Denies numbness, weakness. Related Data Home Medications Medication Instructions Recorded Confirmed finasteride 5 mg tablet 5 mg PO DAILY 05/27/19 03/12/21 rivastigmine 4.6 mg/24 hour 4.6 mg transdermal DAILY 05/27/19 03/12/21 transdermal patch simvastatin 20 mg tablet 10 mg PO .COMPLEX 05/27/19 03/12/21 terazosin 5 mg capsule 5 mg PO .everyday at bedtime 05/27/19 03/12/21 cetirizine 10 mg tablet 10 mg PO PRN PRN Allergic Symptoms 03/12/21 03/12/21 cholecalciferol (vitamin D3) 50 50 mcg PO DAILY 03/12/21 03/12/21 mcg (2,000 unit) capsule memantine 28 mg capsule 28 mg PO DAILY 03/12/21 03/12/21 sprinkle,extended release 24hr Allergies Allergy/AdvReac Type Severity Reaction Status Date / Time aspirin Allergy Unknown Swelling Verified 06/16/22 17:37 Review of Systems Review of Systems: All systems as dictated in HPI [facility] Past Medical History Medical History BPH (benign prostatic hyperplasia) Branch retinal vein occlusion of left eye Dementia Elevated prostate specific antigen less than 10 ng/ml Essential hypertension, benign Mixed hyperlipidemia Surgical History Surgical History Hx of cataract extraction Family History Family History Sibling Tachyarrhythmia Social History Social History Social History: Lives with his at [facility]. He is Full Code. No tobacco use. Drinks 3oz of wine per night. No drug use. He nominates his son to be the individual who would make decisions for him if he is unable. Smoking status: Never smoker Second hand tobacco smoke exposure: No Alcohol intake: current Drinks per week: 7 Substance use: never Spiritual care concerns: No Exam Narrative: GENERAL: Well-appearing, well-nourished, and in no acute distress. HEAD: Normocephalic, atraumatic. EYES: PERRLA and EOMI. ENT: Nares clear, no rhinorrhea or epistaxis. Mucous membranes moist. Oropharynx without tonsillar hypertrophy exudate or other lesions. NECK: Supple. No adenopathy or masses. CHEST: No respiratory distress. Clear to auscultation. No wheezes rales or rhonchi HEART: Regular rate and rhythm. No murmur heard. Normal peripheral pulses. ABDOMEN: Soft, nontender, nondistended, normal active bowel sounds. MSK: Tenderness throughout the left shoulder joint. There is mild deformity present. Range of motion is severely impacted due to pain and deformity. Neurovascularly intact distally. Right upper extremity benign SKIN: Warm, dry, no rash. NEURO: Alert and oriented x3. No focal deficits. PSYCH: Normal mood and affect. Course Reevaluation(s) Reevaluation #1: Patient is doing well with arm sling. Pain is minimal without any medical intervention here. Family is bedside and we have agreed to plan for discharge and follow-up with orthopedics this week Date: 07/23/23 Time: 19:21 Consultations Consultation #1: Spoke with orthopedics, Dr. Colby: Recommends conservative management at this point after he has reviewed the results of the CT scan. We will treat with arm sling and oral pain control and plan for discharge
[2023-07-23 18:37] LABS: Basophils Percent Auto 0.3 % (0.2-1.2); Eosinophils Absolute Auto 0.1 K/mm3 (0-0.3); Eosinophils Percent Auto 1.2 % (0-4.4); Hematocrit 35.6 % (42.0-52.0); Hemoglobin 11.8 g/dL (14.0-18.0); Immature Granulocyte Absolute 0.11 K/mm3 (0.00-0.031); Immature Granulocyte Percent A 0.9 % (0-0.5); Lymphocytes Absolute Auto 1.09 K/mm3 (0.9-3.2); Lymphocytes Percent Auto 9.2 % (18.3-44.2); Mean Corpuscular HGB Conc 33.1 g/dl (32-36); Mean Corpuscular Hemoglobin 32.3 pg (26-34); Mean Corpuscular Volume 97.5 fl (80-100); Mean Platelet Volume 10.9 fl (7.4-10.4); Monocytes Absolute Auto 0.8 K/mm3 (0.1-0.6); Monocytes Percent Auto 6.4 % (2.6-8.5); Neutrophils Absolute Auto 9.7 K/mm3 (1.3-6.7); Platelet Count Result 144 k/mm3 (150-375); Red Blood Count 3.65 M/mm3 (4.6-6.20); Red Cell Distribution Width 12.9 % (11.5-14.5); White Blood Count 11.8 K/mm3 (4.5-10.0)
[2023-07-23 18:47] LABS: Alanine Aminotransferase 20 U/L (6-50); Albumin Level 3.8 g/dL (3.5-5.1); Alkaline Phosphatase 55 U/L (38-126); Anion Gap 7 mmol/L (4-12); Aspartate Amino Transferase 31 U/L (17-59); Bilirubin,Total 0.4 mg/dL (0.2-1.3); Blood Urea Nitrogen 37 mg/dL (9-20); Calcium 8.5 mg/dL (8.4-10.2); Carbon Dioxide 23 mmol/L (22-30); Chloride 104 mmol/L (98-107); Estimated CRCL calculation 82 ml/min; Estimated Glomerular Filt Rate > 60; Glucose 120 mg/dL (65-110); Potassium 4.1 mmol/L (3.4-5.0); Sodium 134 mmol/L (137-145)
[2023-07-23 18:54] VITALS: BP 145/74; PULSE 56; RESP 25; O2SAT 98
[2023-07-23 18:55] LABS: INR 1.1; Prothrombin Time 14.9 Seconds (11.1-14.7)
[2023-07-23 18:56] LABS: Partial Thromboplastin Time 28.5 Seconds (22.3-36.8)
--- NOTE | 2023-07-23 20:06 | PC.NURSE ---
attempted calling [facility] @1999 and again @2005 with no answer. left a voicemail with call back number and patients family verbalized discharge teaching. all questions answered
[2023-07-23 20:07] VITALS: BP 128/57; PULSE 64; RESP 26; TEMP 36.8; O2SAT 98
--- NOTE | 2023-07-23 21:33 | PC.NURSE ---
nurse Hetal from [facility] called for patient update @[phone]
== END 2023-07-23 20:03 ==
PROVIDERS: Emergency Provider Physician Assistant
DX: S42.222A 2-part displaced fracture of surgical neck of left humerus, initial encounter for closed fracture (principal); F03.90 Unspecified dementia, unspecified severity, without behavioral disturbance, psychotic disturbance, mood disturbance, and anxiety; I10 Essential (primary) hypertension; E78.2 Mixed hyperlipidemia; N40.0 Benign prostatic hyperplasia without lower urinary tract symptoms; Z98.49 Cataract extraction status, unspecified eye; W10.2XXA Fall (on)(from) incline, initial encounter
CPT/HCPCS: 36415; 73030; 73200; 80053; 85025; 85610; 85730; 86850; 86900; 86901; 99284; A4565

== ENCOUNTER 2023-08-22 20:47 | Emergency (ER) | payer OTHER, SELFPAY ==
--- NOTE | ~2023-08-22 | XR_ITS ---
XR shoulder LT min 2V Ordering provider: Aldo Holliday History: . pain status post fall . Comparison: July 29, 2023 FINDINGS: BONES: Comminuted fracture in the proximal metaphysis of the left humerus. Posterior displacement of the distal fragment seen. JOINT SPACES: The acromioclavicular joint is normal. The glenohumeral joint is normal. SOFT TISSUES: Soft tissue swelling is seen laterally. IMPRESSION: Comminuted fracture in the proximal metaphysis of the left humerus. Posterior displacement of the dis ceci fragment seen. Reviewed, dictated and finalized at location A. IMPRESSION: Comminuted fracture in the proximal metaphysis of the left humerus. Posterior d isplacement of the distal fragment seen.
--- NOTE | ~2023-08-22 | XR_ITS ---
XR shoulder RT min 2V Ordering provider: Aldo Holliday History: . pain status post fall . Comparison: None. FINDINGS: BONES: No acute fracture or dislocation. JOINT SPACES: The acromioclavicular joint shows osteoarthritic changes.. The glenohumeral joint shows narrowing of the joint space. SOFT TISSUES: Normal. Prominent markings in the lower lobes of the lungs. IMPRESSION: No acute osseous abnormality right shoulder. Reviewed, dictated and finalized at location A.
--- NOTE | ~2023-08-22 | CT_ITS ---
CT cervical spine wo con Ordering provider: Aldo Holliday MD History: . neck pain status post fall . Comparison: None. Technique: CT of the cervical spine was performed without contrast. Sagittal and coronal reformatted images were also obtained and reviewed. Radiation reduction technique utilized. DLP is 401.87 mGy. FINDINGS: VERTEBRAE: No subluxation or acute fracture. The occipital condyles are intact. Loss of volume of T1 , T2 and T3 with maximum changes in T3. The fracture in T3 is most likely acute. Multilevel facet joint disease. DISC SPACES: Normal. Bilateral mild narrowing of the foramina at the level of C3-C4. PARASPINOUS SOFT TISSUES: Normal. IMPRESSION: No acute osseous abnormality cervical spine. Compression fracture of T1, T2 and T3 with highly suggestive acute fracture of T3. Clinical correlati on and or MRI is advised. Reviewed, dictated and finalized at location A. IMPRESSION: No acute osseous abnormality cervical spine. Compression fracture of T1, T2 and T3 with highly suggestive acute fracture of T3. Clinical correlation and or MRI is advised.
--- NOTE | ~2023-08-22 | XR_ITS ---
XR chest 1V Ordering provider: Aldo Holliday MD History: 83 years Male with . synocope . Comparison: June 16, 2022 FINDINGS: MEDIASTINUM: The cardiac silhouette is slightly enlarged. Congestive chidi. LUNGS: No infiltrates, effusions or pneumothorax. Prominent markings in the lower lobes. Minimal inte rstitial changes bilaterally. OTHER: No free air under the diaphragm. IMPRESSION: Prominent markings in the lower lobes. Interstitial pneumonitis cannot be excluded. Clinical correlat ion advised. Reviewed, dictated and finalized at location A. IMPRESSION: Prominent markings in the lower lobes. Interstitial pneumonitis cannot be exclu ded. Clinical correlation advised.
--- NOTE | ~2023-08-22 | CT_ITS ---
CT brain wo con Ordering provider: Aldo Holliday MD History: 83 years Male with . head injury . Comparison: None. Technique: CT of the head without contrast. Radiation reduction technique utilized. The DLP is 605.33 mGy. FINDINGS: BRAIN PARENCHYMA AND CSF SPACES: Deep white matter ischemic changes with mild brain atrophy and mild ventricular dilatation. No midline shift, mass effect or hemorrhage. The brain parenchyma and CSF sp aces are otherwise normal. VISUALIZED PARANASAL SINUSES: Bilateral ethmoid sinus disease. MASTOIDS: Well aerated. BONES: The bones appear intact. SOFT TISSUES: Minimal soft tissue swelling over the largest orbit Visualized nasopharynx is normal. S uperficial soft tissues are normal. IMPRESSION: No acute intracranial findings. Reviewed, dictated and finalized at location A.
--- NOTE | ~2023-08-22 | XR_ITS ---
XR elbow LT min 3V Ordering provider: Aldo Holliday MD History: . pain status post fall . Comparison: None. FINDINGS: BONES: No acute fracture or dislocation. JOINT SPACES: Normal. SOFT TISSUES: Normal. No definite joint effusion. IMPRESSION: No acute osseous abnormality left elbow. Reviewed, dictated and finalized at location A.
[2023-08-22 20:59] VITALS: BP 157/79; PULSE 67; RESP 17; TEMP 37.1; O2SAT 100
--- NOTE | 2023-08-22 21:26 | ECG_ITS ---
Test Date: 2023-08-22 22:36:33 Measurements Intervals [place] Rate: 74 P: 60 IN: 173 QRS: -22 QRSD: 110 T: 7 QT: 386 QTc: 429 Interpretive Statements SINUS RHYTHM BORDERLINE LEFT AXIS DEVIATION [QRS AXIS < -20] DELAYED R-WAVE TRANSITION BORDERLINE ECG No previous ECG available for comparison Electronically Signed On 08-23-2023 08:04:09 CDT by Doug Damon M.D.
[2023-08-22 21:30] VITALS: BP 160/82; PULSE 63; RESP 20; O2SAT 98
[2023-08-22 22:32] LABS: Basophils Percent Auto 0.5 % (0.2-1.2); Eosinophils Absolute Auto 0.1 K/mm3 (0-0.3); Eosinophils Percent Auto 1.7 % (0-4.4); Hematocrit 36.6 % (42.0-52.0); Hemoglobin 11.6 g/dL (14.0-18.0); Immature Granulocyte Absolute 0.03 K/mm3 (0.00-0.031); Immature Granulocyte Percent A 0.4 % (0-0.5); Lymphocytes Percent Auto 13.2 % (18.3-44.2); Mean Corpuscular HGB Conc 31.7 g/dl (32-36); Mean Corpuscular Volume 100.8 fl (80-100); Mean Platelet Volume 9.6 fl (7.4-10.4); Monocytes Absolute Auto 0.7 K/mm3 (0.1-0.6); Neutrophils Absolute Auto 5.7 K/mm3 (1.3-6.7); Neutrophils Percent Auto 75.2 % (45.5-73.1); Platelet Count Result 248 k/mm3 (150-375); Red Blood Count 3.63 M/mm3 (4.6-6.20); Red Cell Distribution Width 14.8 % (11.5-14.5); White Blood Count 7.6 K/mm3 (4.5-10.0)
[2023-08-22 22:39] VITALS: BP 196/90; PULSE 75
[2023-08-22 22:40] VITALS: BP 207/109; PULSE 79
[2023-08-22 22:40] LABS: Add Urine Microscopic? YES; Appearance Urine Clear (Clear); Bacteria Urine None Seen /hpf; Bilirubin Urine Negative (Negative); Blood Urine Negative (Negative); Color Urine Yellow (Yellow); Glucose Urine UA Negative (Negative); Ketones Urine Negative (Negative); Leukocyte Esterase Ur Negative LEU/UL (Negative); Nitrate Urine Negative (Negative); Non Pathogenic Casts 0-2; Protein Urine Trace mg/dL (Negative); RBC Urine 0-2 /hpf (0-2); Specific Grav Ur 1.017 (1.001-1.035); Squamous Epithelial Cell Urine None Seen /hpf (Few); Urobilinogen Urine 0.2 mg/dL (<2.0); WBC Urine 0-5 /hpf (0-3)
[2023-08-22 22:42] LABS: INR 1.1; Prothrombin Time 14.2 Seconds (11.1-14.7)
[2023-08-22 22:43] VITALS: BP 210/105; PULSE 87
[2023-08-22 22:43] LABS: Partial Thromboplastin Time 27.9 Seconds (22.3-36.8)
[2023-08-22 22:46] LABS: Alanine Aminotransferase 19 U/L (6-50); Albumin Level 4.2 g/dL (3.5-5.1); Alkaline Phosphatase 98 U/L (38-126); Anion Gap 7 mmol/L (4-12); Aspartate Amino Transferase 39 U/L (17-59); Bilirubin,Total 0.7 mg/dL (0.2-1.3); Blood Urea Nitrogen 34 mg/dL (9-20); Calcium 8.8 mg/dL (8.4-10.2); Carbon Dioxide 27 mmol/L (22-30); Chloride 102 mmol/L (98-107); Estimated CRCL calculation 76 ml/min; Estimated Glomerular Filt Rate > 60; Glucose 107 mg/dL (65-110); Magnesium 1.9 mg/dL (1.6-2.3); Potassium 3.9 mmol/L (3.4-5.0); Sodium 136 mmol/L (137-145)
[2023-08-22 23:02] LABS: NT Pro B Type Natriuretic Pept 256 pg/mL (19.9-100); Troponin I 0.013 ng/mL (0.000-0.034)
[2023-08-22 23:04] VITALS: BP 172/82; PULSE 67; RESP 18; O2SAT 98
--- NOTE | 2023-08-22 23:37 | ED.GENADULT ---
HPI - General Adult General Chief complaint: Fall Stated complaint: GLF, head injury Time Seen by Provider: 08/22/23 20:58 History of Present Illness HPI narrative: Patient 83-year-old gentleman who presents emergency department with chief complaint of fall in the shower. Per the staff patient was taking shower slipped on wet floor report no loss of consciousness reports a hematoma on the head patient reports that he had a recent fracture in his left humerus and also reports he has had some increasing edema in his lower extremities the patient did denies chest pain denies shortness of breath Related Data Home Medications Medication Instructions Recorded Confirmed finasteride 5 mg tablet 5 mg PO DAILY 05/27/19 03/12/21 rivastigmine 4.6 mg/24 hour 4.6 mg transdermal DAILY 05/27/19 03/12/21 transdermal patch cholecalciferol (vitamin D3) 50 50 mcg PO DAILY 03/12/21 03/12/21 mcg (2,000 unit) capsule acetaminophen 500 mg capsule 500 mg PO Q6H PRN 07/29/23 buspirone 7.5 mg tablet 7.5 mg PO TID 07/29/23 lidocaine 5 % topical patch 1 patch topical DAILY 07/29/23 polyethylene glycol 3350 17 17 g PO DAILY 07/29/23 gram/dose oral powder simvastatin 40 mg tablet 40 mg PO DAILY 07/29/23 triamcinolone acetonide 0.1 % 1 applic topical BID 07/29/23 topical cream Allergies Allergy/AdvReac Type Severity Reaction Status Date / Time aspirin Allergy Unknown Swelling Verified 07/29/23 11:04 Review of Systems Review of Systems: A 10 system review of systems was completed on the patient and is negative except for what is stated in the HPI. Nursing and ancillary documentation was reviewed. [facility] Past Medical History Medical History BPH (benign prostatic hyperplasia) Branch retinal vein occlusion of left eye Dementia Elevated prostate specific antigen less than 10 ng/ml Essential hypertension, benign History of heart valve abnormality Mixed hyperlipidemia Surgical History Surgical History Hx of cataract extraction Family History Family History Sibling Tachyarrhythmia Social History Social History Social History: Lives with his at [facility]. He is Full Code. No tobacco use. Drinks 3oz of wine per night. No drug use. He nominates his son to be the individual who would make decisions for him if he is unable. Smoking status: Never smoker Second hand tobacco smoke exposure: No Alcohol intake: current Drinks per week: 7 Substance use: never Do You Feel Safe in your Home?: Yes Lack of Transportation: No Lack of Food: Never True Current Housing: I Have Housing Concerned About Future Housing: No Difficulty Paying Gas/Electric Bills: No Difficulty Paying for Meds: No Currently Unemployed: No Education: Associate Degree Difficulty w/ Childcare or Family Care: No Living arrangements: assisted living Occupation/Education: retired Gender identity (if verbalized by the patient): Male Spiritual care concerns: No Exam Narrative: GENERAL: Well-appearing, well-nourished, and in no acute distress. HEAD: Normocephalic, atraumatic. EYES: PERRLA and EOMI. ENT: Nares clear, no rhinorrhea or epistaxis. Mucous membranes moist. NECK: Supple. CHEST: Clear to auscultation. No respiratory distress. HEART: Regular rate and rhythm. No murmur heard. Normal peripheral pulses. ABDOMEN: Soft, nontender, nondistended, normal active bowel sounds. EXTREMITIES: Normal range of motion left upper extremity is in a sling. 2+ edema. SKIN: Warm, dry, no rash. NEURO: No focal deficits. Alert and oriented x3. PSYCH: Normal mood and affect. Course Vital Signs Vital signs: Vital Signs Temperature 37.1 C 08/22/23 20:59 Pulse Rate 67 06/2
[2023-08-23 00:35] VITALS: BP 168/85; PULSE 75; RESP 19; TEMP 36.9; O2SAT 100
== END 2023-08-23 00:37 ==
PROVIDERS: Emergency Provider Emergency Medicine; PCP Family Medicine
DX: S00.93XA Contusion of unspecified part of head, initial encounter (principal); S22.030A Wedge compression fracture of third thoracic vertebra, initial encounter for closed fracture; R60.0 Localized edema; S49.092 Other physeal fracture of upper end of humerus, left arm; F03.90 Unspecified dementia, unspecified severity, without behavioral disturbance, psychotic disturbance, mood disturbance, and anxiety; I10 Essential (primary) hypertension; E78.2 Mixed hyperlipidemia; N40.0 Benign prostatic hyperplasia without lower urinary tract symptoms; Z79.01 Long term (current) use of anticoagulants; Z79.899 Other long term (current) drug therapy; W18.2XXA Fall in (into) shower or empty bathtub, initial encounter; X58.XXXD Exposure to other specified factors, subsequent encounter; R94.31 Abnormal electrocardiogram [ECG] [EKG]; R91.8 Other nonspecific abnormal finding of lung field
CPT/HCPCS: 36415; 70450; 71045; 72125; 73030; 73080; 80053; 81001; 83605; 83735; 83880; 84145; 84484; 85025; 85610; 85730; 93005; 99284

== ENCOUNTER 2023-08-26 23:14 | Emergency (ER) | payer OTHER, SELFPAY ==
--- NOTE | ~2023-08-26 | XR_ITS ---
XR chest 1V portable Ordering provider: Lizbeth Cardoza MD History: 83 years Male with . fall PAIN TO SHOULDER BLADES . Comparison: August 22, 2023 FINDINGS: MEDIASTINUM: The cardiac silhouette is slightly enlarged. Prominent chidi. LUNGS: No effusion or pneumothorax. Prominent markings in the lower lobes. Atelectatic changes are po ssible. OTHER: Fracture of the left humeral neck is noted. No free air under the diaphragm. Degenerative poe ges of the spine. IMPRESSION: Prominent markings in the lower lobes with possible atelectatic changes. Underlying fibrotic changes. Fracture of the left humerus. Reviewed, dictated and finalized at location A. IMPRESSION: Prominent markings in the lower lobes with possible atelectatic changes. Underl brian fibrotic changes. Fracture of the left humerus.
--- NOTE | ~2023-08-26 | CT_ITS ---
CT brain wo con Ordering provider: Lizbeth Cardoza MD History: 83 years Male with . fall on Eliquis . Comparison: August 22, 2023 Technique: CT of the head without contrast. Radiation reduction technique utilized. DLP is 605.33 mGy FINDINGS: BRAIN PARENCHYMA AND CSF SPACES: Mild leukoaraiosis and diffuse cortical atrophy. Mild atheromatous d isease. No midline shift, mass effect or hemorrhage. The brain parenchyma and CSF spaces are otherwi se normal. VISUALIZED PARANASAL SINUSES: Left ethmoid sinus disease. MASTOIDS: Well aerated. BONES: The bones appear intact. SOFT TISSUES: Visualized nasopharynx is normal. Superficial soft tissues are normal. IMPRESSION: No acute intracranial findings. Reviewed, dictated and finalized at location A.
[2023-08-26 23:15] VITALS: BP 203/103; PULSE 72; RESP 16; TEMP 36.9; O2SAT 98
[2023-08-26 23:19] VITALS: O2SAT 99
[2023-08-26 23:23] VITALS: BP 203/103; PULSE 68; RESP 23; O2SAT 97
--- NOTE | 2023-08-26 23:23 | ECG_ITS ---
Test Date: 2023-08-26 23:35:00 Measurements Intervals [place] Rate: 64 P: 40 NH: 169 QRS: -13 QRSD: 110 T: 13 QT: 406 QTc: 421 Interpretive Statements SINUS RHYTHM Compared to ECG 08/22/2023 22:36:33 No significant changes Electronically Signed On 08-27-2023 11:51:45 CDT by Maxi Sheridan M.D.
--- NOTE | 2023-08-26 23:24 | ED.HEATRA ---
HPI - Head Injury General Chief complaint: Head Injury Stated complaint: FALL, HEAD INJURY, HYPERTENSIVE Time Seen by Provider: 08/26/23 23:14 Source: patient, family, EMS and RN notes reviewed Mode of arrival: EMS Limitations: other (hard of hearing so difficult to obtain some of history) History of Present Illness HPI Narrative: Patient presents as a fall. Resides at an assisted living facility. This is his 3rd fall in a week. When asked about the fall, he states I think my heart but denies any chest pain, palpitations, shortness of breath or preceding symptoms. Can not tell details of falls though and unclear if lost consciousness or not. Struck his head and Carole is on medication list though patient states he quit it. Related Data Home Medications Medication Instructions Recorded Confirmed finasteride 5 mg tablet 5 mg PO DAILY 05/27/19 03/12/21 rivastigmine 4.6 mg/24 hour 4.6 mg transdermal DAILY 05/27/19 03/12/21 transdermal patch cholecalciferol (vitamin D3) 50 50 mcg PO DAILY 03/12/21 03/12/21 mcg (2,000 unit) capsule acetaminophen 500 mg capsule 500 mg PO Q6H PRN Back Pain 07/29/23 buspirone 7.5 mg tablet 7.5 mg PO TID 07/29/23 lidocaine 5 % topical patch 1 patch topical DAILY 07/29/23 polyethylene glycol 3350 17 17 g PO DAILY 07/29/23 gram/dose oral powder simvastatin 40 mg tablet 40 mg PO DAILY 07/29/23 triamcinolone acetonide 0.1 % 1 applic topical BID 07/29/23 topical cream calcium citrate 250 mg PO DAILY 08/26/23 docusate sodium 50 mg capsule mg PO 08/26/23 sennosides 8.6 mg capsule (senna) mg 08/26/23 Allergies Allergy/AdvReac Type Severity Reaction Status Date / Time aspirin Allergy Unknown Swelling Verified 07/29/23 11:04 loratadine [From Claritin] Allergy Swelling Verified 08/26/23 23:29 shellfish derived Allergy Swelling Verified 08/26/23 23:29 [facility] Past Medical History Medical History (Updated 08/28/23 @ 00:01 by Background Danaida) BPH (benign prostatic hyperplasia) Branch retinal vein occlusion of left eye Dementia Elevated prostate specific antigen less than 10 ng/ml Essential hypertension, benign Fracture of neck of left humerus History of heart valve abnormality Mixed hyperlipidemia Surgical History Surgical History Hx of cataract extraction Family History Family History Sibling Tachyarrhythmia Social History Social History (Updated 08/27/23 @ 01:24 by Lizbeth Cardoza MD) Social History: Lives with his at [facility]. He is Full Code per documentation signed 04/29/17. No tobacco use. Drinks 3oz of wine per night. No drug use. He nominates his son to be the individual who would make decisions for him if he is unable. Smoking status: Never smoker Second hand tobacco smoke exposure: No Alcohol intake: current Drinks per week: 7 Substance use: never Do You Feel Safe in your Home?: Yes Lack of Transportation: No Lack of Food: Never True Current Housing: I Have Housing Concerned About Future Housing: No Difficulty Paying Gas/Electric Bills: No Difficulty Paying for Meds: No Currently Unemployed: No Education: Associate Degree Difficulty w/ Childcare or Family Care: No Living arrangements: assisted living Occupation/Education: retired Gender identity (if verbalized by the patient): Male Spiritual care concerns: No Exam Narrative: GENERAL: Well-appearing, well-nourished, and in no acute distress. HEAD: No bleeding laceration. EYES: Non injected, non icteric ENT: Nares clear, no rhinorrhea or epistaxis. Hard of hearing but improved when spoken to at close range NECK: Supple. CHEST: Speaking in full sentences. No respiratory distress. HEART: Regular rate and rhythm. . ABDOMEN: Soft, nondistended. EXTREMITIES: Left arm in sling. No edema. SKIN: Warm, dry, no rash. NEURO: No foca
[2023-08-26 23:30] VITALS: PULSE 66; RESP 26; O2SAT 95
[2023-08-26 23:45] LABS: Basophils Percent Auto 0.4 % (0.2-1.2); Eosinophils Absolute Auto 0.2 K/mm3 (0-0.3); Eosinophils Percent Auto 2.3 % (0-4.4); Hematocrit 35.4 % (42.0-52.0); Hemoglobin 11.2 g/dL (14.0-18.0); Immature Granulocyte Absolute 0.06 K/mm3 (0.00-0.031); Immature Granulocyte Percent A 0.8 % (0-0.5); Lymphocytes Absolute Auto 1.12 K/mm3 (0.9-3.2); Lymphocytes Percent Auto 15.4 % (18.3-44.2); Mean Corpuscular HGB Conc 31.6 g/dl (32-36); Mean Corpuscular Hemoglobin 31.8 pg (26-34); Mean Corpuscular Volume 100.6 fl (80-100); Monocytes Absolute Auto 0.6 K/mm3 (0.1-0.6); Monocytes Percent Auto 8.7 % (2.6-8.5); Neutrophils Absolute Auto 5.2 K/mm3 (1.3-6.7); Neutrophils Percent Auto 72.4 % (45.5-73.1); Platelet Count Result 208 k/mm3 (150-375); Red Blood Count 3.52 M/mm3 (4.6-6.20); Red Cell Distribution Width 14.5 % (11.5-14.5); White Blood Count 7.3 K/mm3 (4.5-10.0)
[2023-08-26 23:55] LABS: INR 1.1; Prothrombin Time 14.5 Seconds (11.1-14.7)
[2023-08-26 23:56] LABS: Partial Thromboplastin Time 28.8 Seconds (22.3-36.8)
[2023-08-26 23:59] LABS: Alanine Aminotransferase 22 U/L (6-50); Albumin Level 4.1 g/dL (3.5-5.1); Alkaline Phosphatase 87 U/L (38-126); Anion Gap 5 mmol/L (4-12); Aspartate Amino Transferase 40 U/L (17-59); Bilirubin,Total 0.8 mg/dL (0.2-1.3); Blood Urea Nitrogen 31 mg/dL (9-20); Calcium 8.6 mg/dL (8.4-10.2); Carbon Dioxide 27 mmol/L (22-30); Chloride 105 mmol/L (98-107); Estimated CRCL calculation 67 ml/min; Estimated Glomerular Filt Rate > 60; Glucose 125 mg/dL (65-110); Potassium 4.2 mmol/L (3.4-5.0); Sodium 137 mmol/L (137-145)
[2023-08-27] VITALS (7 sets, daily range): BP systolic 193–204; BP diastolic 99–106; PULSE 62–68; RESP 16–23; O2SAT 98
[2023-08-27 00:02] LABS: Ethanol < 10 mg/dL (<10)
[2023-08-27 00:08] LABS: Appearance Urine Clear (Clear); Bilirubin Urine Negative (Negative); Blood Urine Negative (Negative); Color Urine Yellow (Yellow); Glucose Urine UA Negative (Negative); Ketones Urine Negative (Negative); Leukocyte Esterase Ur Negative LEU/UL (Negative); Nitrate Urine Negative (Negative); Protein Urine Negative (Negative); Specific Grav Ur 1.008 (1.001-1.035); Urobilinogen Urine 0.2 mg/dL (<2.0)
[2023-08-27 00:10] LABS: Troponin I < 0.012 ng/mL (0.000-0.034)
[2023-08-27 00:31] LABS: Add Urine Microscopic? NO
[2023-08-27] MEDS: hydrALAZINE HCL 20 MG/ML VIAL 10 MG IV PUSH (02:15)
== END 2023-08-27 03:33 ==
PROVIDERS: Emergency Provider Student in an Organized Health Care Education/Training Program; PCP Family Medicine
DX: R55 Syncope and collapse (principal); D64.9 Anemia, unspecified; I10 Essential (primary) hypertension; F03.90 Unspecified dementia, unspecified severity, without behavioral disturbance, psychotic disturbance, mood disturbance, and anxiety; E78.2 Mixed hyperlipidemia; Z79.899 Other long term (current) drug therapy; Z79.01 Long term (current) use of anticoagulants
CPT/HCPCS: 36415; 70450; 71045; 80053; 80307; 81003; 83735; 84484; 85025; 85610; 85730; 93005; 96374; 99284; J0360

== ENCOUNTER 2023-10-30 08:18 | Emergency (ER) | payer OTHER, SELFPAY ==
--- NOTE | ~2023-10-30 | XR_ITS ---
EXAMINATION: XR chest 2V DATE: 10/30/2023 09:08 INDICATION: Left posterior rib pain post fall TECHNIQUE: frontal and lateral views of the chest were obtained. COMPARISON: Chest radiograph dated 08/26/2023 FINDINGS: Again seen are few old right rib fractures. Healing fracture at the proximal neck of the left humerus . Mild opacities at the posterior lung bases which could represent atelectasis, aspiration or pneumon ia. No pulmonary edema, pleural effusion or pneumothorax. Cardiomegaly. IMPRESSION: 1. Opacities at the posterior lung base on the lateral projection which could represent atelectasis, aspiration or pneumonia. Reviewed, dictated and finalized at location A. IMPRESSION: 1. Opacities at the posterior lung base on the lateral projection which could r epresent atelectasis, aspiration or pneumonia.
--- NOTE | ~2023-10-30 | CT_ITS ---
EXAMINATION: CT brain wo con DATE: 10/30/2023 09:03 INDICATION: Head injury TECHNIQUE: Computed tomography (CT) of the head was performed without intravenous contrast. Sagittal and coronal reconstructions were performed. The mA was adjusted according to patient size. Iterative reconstruction technique was employed. The dose-length product was 605.33 mGy-cm. COMPARISON: head CT dated 08/26/2023 FINDINGS: No fracture. No acute intracranial hemorrhage, acute infarction or abnormal extra axial fluid collect ion. There is mild scattered white matter hypoattenuation consistent with chronic small vessel ischem ic disease. Symmetric prominence of the sulci consistent with moderate age-appropriate diffuse cerebr al volume loss. Ventricles are normal and symmetric. Mucosal thickening in the bilateral ethmoid and maxillary sinuses at the entrance to the bilateral sphenoid sinuses. Changes of bilateral intraocula r lens replacement. The orbits and mastoid air cells are normal. IMPRESSION: 1. No fracture or acute intracranial process. 2. Age-related changes including moderate diffuse volume loss and mild scattered white matter hypoatt enuation consistent with chronic small vessel ischemic disease. Reviewed, dictated and finalized at location A. IMPRESSION: 1. No fracture or acute intracranial process. 2. Age-related changes including moderate diffuse volume loss and mild scattere d white matter hypoattenuation consistent with chronic small vessel ischemic di sease.
[2023-10-30 08:16] VITALS: BP 167/102; PULSE 63; RESP 14; TEMP 36.7; O2SAT 97
--- NOTE | 2023-10-30 08:27 | ECG_ITS ---
Test Date: 2023-10-30 08:34:16 Measurements Intervals [place] Rate: 60 P: 95 MA: 168 QRS: -15 QRSD: 109 T: 2 QT: 418 QTc: 420 Interpretive Statements SINUS RHYTHM WITH SINUS ARRHYTHMIA BORDERLINE ECG Compared to ECG 08/26/2023 23:35:00 No significant changes Electronically Signed On 10-30-2023 13:24:19 CDT by Doug Damon M.D.
--- NOTE | 2023-10-30 08:39 | ED.GENADULT ---
HPI - General Adult General Chief complaint: Fall Stated complaint: fall Time Seen by Provider: 10/30/23 08:19 History of Present Illness HPI narrative: 83-year-old male present to the emergency department for evaluation after having a ground level fall this morning. Patient states that he did not have breakfast and felt dizzy lightheaded did fall and strike his head. Patient does have a laceration to the top of his scalp and does have a abrasion on the left lower lateral posterior ribs. Patient denies any pain or injury. Patient states he feels at his baseline and patient is alert time of examination. Related Data Home Medications Medication Instructions Recorded Confirmed finasteride 5 mg tablet 5 mg PO DAILY 05/27/19 03/12/21 rivastigmine 4.6 mg/24 hour 4.6 mg transdermal DAILY 05/27/19 03/12/21 transdermal patch cholecalciferol (vitamin D3) 50 50 mcg PO DAILY 03/12/21 03/12/21 mcg (2,000 unit) capsule acetaminophen 500 mg capsule 500 mg PO Q6H PRN Back Pain 07/29/23 buspirone 7.5 mg tablet 7.5 mg PO TID 07/29/23 lidocaine 5 % topical patch 1 patch topical DAILY 07/29/23 polyethylene glycol 3350 17 17 g PO DAILY 07/29/23 gram/dose oral powder simvastatin 40 mg tablet 40 mg PO DAILY 07/29/23 triamcinolone acetonide 0.1 % 1 applic topical BID 07/29/23 topical cream calcium citrate 250 mg PO DAILY 08/26/23 docusate sodium 50 mg capsule mg PO 08/26/23 sennosides 8.6 mg capsule (senna) mg 08/26/23 Allergies Allergy/AdvReac Type Severity Reaction Status Date / Time aspirin Allergy Unknown Swelling Verified 10/22/23 08:32 loratadine [From Claritin] Allergy Swelling Verified 10/22/23 08:32 shellfish derived Allergy Swelling Verified 10/22/23 08:32 Review of Systems Review of Systems: All systems reviewed & are unremarkable except as noted in HPI and below PMFSH Past Medical History Medical History (Updated 10/30/23 @ 10:04 by Tod Kumar MD) BPH (benign prostatic hyperplasia) Branch retinal vein occlusion of left eye Dementia Elevated prostate specific antigen less than 10 ng/ml Essential hypertension, benign Fracture of neck of left humerus History of heart valve abnormality Mixed hyperlipidemia Surgical History Surgical History Hx of cataract extraction Family History Family History Sibling Tachyarrhythmia Social History Social History (Updated 10/22/23 @ 08:38 by SAM Farah) Social History: Lives with his at [facility]. He is Full Code per documentation signed 04/29/17. No tobacco use. Drinks 3oz of wine per night. No drug use. He nominates his son to be the individual who would make decisions for him if he is unable. 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 Gender identity (if verbalized by the patient): Male Spiritual care concerns: No Exam Narrative: APPEARANCE: Well appearing, no pain, no distress, well-nourished. HEAD: normocephalic, scalp laceration. EYES: PERRLA/EOMI, conjunctivae clear. NOSE: Normal no drainage EARS:TMS clear with good light reflex. THROAT: Pharynx clear, no exudate. NECK: Supple. No adenopathy, no masses. RESPIRATORY: Airway patent, respirations nonlabored. Clear to auscultation bila
[2023-10-30 08:46] VITALS: BP 171/93; PULSE 62; RESP 19; O2SAT 98
[2023-10-30 08:54] LABS: Glucose Point of Care 121 mg/dl (65-105)
[2023-10-30 08:59] LABS: Basophils Percent Auto 0.8 % (0.2-1.2); Eosinophils Absolute Auto 0.3 K/mm3 (0-0.3); Eosinophils Percent Auto 5.3 % (0-4.4); Hemoglobin 13.2 g/dL (14.0-18.0); Immature Granulocyte Absolute 0.02 K/mm3 (0.00-0.031); Immature Granulocyte Percent A 0.4 % (0-0.5); Lymphocytes Absolute Auto 1.22 K/mm3 (0.9-3.2); Lymphocytes Percent Auto 23.2 % (18.3-44.2); Mean Corpuscular Hemoglobin 31.6 pg (26-34); Mean Corpuscular Volume 95.7 fl (80-100); Mean Platelet Volume 10.8 fl (7.4-10.4); Monocytes Absolute Auto 0.4 K/mm3 (0.1-0.6); Monocytes Percent Auto 7.8 % (2.6-8.5); Neutrophils Absolute Auto 3.3 K/mm3 (1.3-6.7); Neutrophils Percent Auto 62.5 % (45.5-73.1); Platelet Count Result 183 k/mm3 (150-375); Red Blood Count 4.18 M/mm3 (4.6-6.20); Red Cell Distribution Width 13.5 % (11.5-14.5); White Blood Count 5.3 K/mm3 (4.5-10.0)
[2023-10-30 09:02] LABS: Add Urine Microscopic? YES; Appearance Urine Clear (Clear); Bacteria Urine None Seen /hpf; Bilirubin Urine Negative (Negative); Blood Urine Negative (Negative); Color Urine Yellow (Yellow); Glucose Urine UA Negative (Negative); Ketones Urine Negative (Negative); Leukocyte Esterase Ur Negative LEU/UL (Negative); Nitrate Urine Negative (Negative); Non Pathogenic Casts 0-2; Protein Urine Trace mg/dL (Negative); RBC Urine 0-2 /hpf (0-2); Specific Grav Ur 1.015 (1.001-1.035); Squamous Epithelial Cell Urine None Seen /hpf (Few); Urobilinogen Urine 0.2 mg/dL (<2.0); WBC Urine 0-5 /hpf (0-3)
[2023-10-30 09:10] LABS: Prothrombin Time 13.5 Seconds (11.1-14.7)
[2023-10-30 09:11] LABS: Partial Thromboplastin Time 24.1 Seconds (22.3-36.8)
[2023-10-30 09:16] LABS: Alanine Aminotransferase 17 U/L (6-50); Albumin Level 4.1 g/dL (3.5-5.1); Alkaline Phosphatase 82 U/L (38-126); Anion Gap 11 mmol/L (4-12); Aspartate Amino Transferase 35 U/L (17-59); Bilirubin,Total 0.6 mg/dL (0.2-1.3); Blood Urea Nitrogen 31 mg/dL (9-20); Calcium 8.6 mg/dL (8.4-10.2); Carbon Dioxide 23 mmol/L (22-30); Chloride 102 mmol/L (98-107); Estimated CRCL calculation 67 ml/min; Estimated Glomerular Filt Rate > 60; Glucose 120 mg/dL (65-110); Potassium 4.2 mmol/L (3.4-5.0); Sodium 136 mmol/L (137-145)
[2023-10-30 09:48] VITALS: BP 167/87; PULSE 51; RESP 12; O2SAT 98
[2023-10-30 10:32] VITALS: BP 170/93; PULSE 62; RESP 15; O2SAT 100
[2023-10-30 11:02] VITALS: BP 199/93; PULSE 61; RESP 18; O2SAT 99
--- NOTE | 2023-10-30 11:08 | PC.NURSE ---
SPOKE WITH TYRONE AT [facility] REGARDING FINDINGS AND NEED FOR TRANSPORT BACK TO FACILITY. SHE WILL BE CALLING SON FOR TRANSPORT AND TRY TO OBTAIN TRANSPORTATION.
--- NOTE | 2023-10-30 11:44 | PC.NURSE ---
gave care and report to CINDY Neumann at [facility]. states the facility shuttle will arrive at 1200 to pick patient up. patient ambulates well with steady gait, denies dizziness.
[2023-10-30 12:09] VITALS: BP 175/87; PULSE 67; RESP 19; O2SAT 98
== END 2023-10-30 12:08 ==
PROVIDERS: Emergency Provider Emergency Medicine; PCP Family Medicine
DX: S01.01XA Laceration without foreign body of scalp, initial encounter (principal); R55 Syncope and collapse; F03.90 Unspecified dementia, unspecified severity, without behavioral disturbance, psychotic disturbance, mood disturbance, and anxiety; I10 Essential (primary) hypertension; E78.2 Mixed hyperlipidemia; N40.0 Benign prostatic hyperplasia without lower urinary tract symptoms; Z98.49 Cataract extraction status, unspecified eye; Z79.899 Other long term (current) drug therapy; R91.8 Other nonspecific abnormal finding of lung field; R94.31 Abnormal electrocardiogram [ECG] [EKG]; W18.39XA Other fall on same level, initial encounter
CPT/HCPCS: 12002; 36415; 70450; 71046; 80053; 81001; 82948; 85025; 85610; 85730; 93005; 99284